=== PATIENT | male | born 1940 | race Caucasian/White ===

== ENCOUNTER 2021-03-26 18:26 | Inpatient (IN) | payer MEDICARE, OTHER, SELFPAY ==
[2021-03-26 19:04] VITALS: BP 109/66; PULSE 60; PULSE 80; RESP 22; TEMP 36.3; O2SAT 99
--- NOTE | 2021-03-26 20:31 | PCM.HP.STD ---
HPI - General General Date of Admission: 03/26/21 HPI Narrative 03/18/2021 TRU JIMENEZ, is a 80 Male who presents to [facility] Emergency Department with neurologic signs/symptoms. Stroke symptoms, CT head negative, Calcium 13.6. UA negative, Chest X-ray small left pleural effusion. IV Fluids given. 03/18/2021 Admit to [facility]. Restless. Urinary Tract Infection 2 weeks prior treated with Keflex. Weakness, confusion x 2 episodes at home. Check PTH, Vitamin D, give normal saline 100cc/hour for hypercalcemia. Hold Lasix. PT/OT for debility. 03/24/2021 Thoracentesis for left pleural effusion. 03/25/2021 Sitting up in bed, discouraged about his blindness. Weak. Calcium normal. Ceftriaxone IV for urinary tract infection. Palliative care consulted. 03/26/2021 Admit to TCU with debility, here for rehabilitation, strengthening, prior to discharge home with . [facility] Medical History (Updated 03/26/21 @ 20:[address] Miguelito Espinosa MD) Debility Diabetes mellitus Edema Encephalopathy Glaucoma Hypercalcemia Hyperlipidemia Hypertension Hypothyroidism Legally blind Pleural effusion, left Seizure disorder Urinary tract infection Vitamin D deficiency Home Medications amoxicillin 500 mg PO BID 03/26/21 [History Last Taken Unknown] aspirin 81 mg PO DAILY 03/26/21 [History Last Taken Unknown] brimonidine 1 drp LEFT EYE BID 03/26/21 [History Last Taken Unknown] cholecalciferol (vitamin D3) [Vitamin D3] 4,000 mcg PO DAILY 03/26/21 [History Last Taken Unknown] dorzolamide-timolol 1 drp EACH EYE BID 03/26/21 [History Last Taken Unknown] furosemide 20 mg PO BID 03/26/21 [History Last Taken Unknown] glipizide 5 mg PO DAILY 03/26/21 [History Last Taken Unknown] levothyroxine 75 mcg PO DAILY 03/26/21 [History Last Taken Unknown] lisinopril-hydrochlorothiazide 1 tab PO DAILY 03/26/21 [History Last Taken Unknown] phenytoin sodium extended 300 mg PO BID 03/26/21 [History Last Taken Unknown] silver sulfadiazine 1 applic TOPICAL DAILY 03/26/21 [History Last Taken Unknown] simvastatin 20 mg PO DAILY 03/26/21 [History Last Taken Unknown] urea 1 applic TOPICAL DAILY 03/26/21 [History Last Taken Unknown] vits A,C,A-bgluct-ntly-zn-vicky [Eye Health Formula] 1 cap PO DAILY 03/26/21 [History Last Taken Unknown] Allergy/AdvReac Type Severity Reaction Status Date / Time No Known Allergies Allergy Verified 03/27/21 00:57 Social History (Updated 03/26/21 @ 20:[address] Miguelito Espinosa MD) household members: spouse Smoking Status: Never smoker alcohol intake: never substance use type: does not use ROS Constitutional Constitutional: Denies chills, fever(s) or weight gain ENT HEENT: Denies headache(s), nasal congestion or nasal discharge Cardiovascular Cardiovascular: Denies chest pain or palpitations Respiratory/Chest Respiratory/Chest: Denies cough, excessive phlegm production or shortness of breath with exertion Gastrointestinal Gastrointestinal: Denies abdominal pain, nausea or vomiting Genitourinary Genitourinary: Denies dysuria Musculoskeletal Musculoskeletal: Denies joint pain or joint swelling Integumentary Integumentary: Denies rash or wounds Neurologic Neurologic: Denies focal weakness, numbness or tingling Psychiatric Psychiatric: Denies anxiety, auditory hallucinations, depression, homicidal ideation or suicidal ideation Physical Exam Const alert and oriented x3 General Appearance: cooperative HEENT normocephalic Eyes PERRL and EOMs intact bilaterally Neck supple, no JVD and no carotid bruits Resp normal respiratory effort, normal air movement and clear to auscultation bilaterally Cardio regular rate and regular rhythm GI normal to inspection, nondistended, normoactive bowel sounds, non-tender and non-distended Extremity normal capillary refill General Extremity: Negative for edema Skin no rashes or lesions noted General Skin Exam: no breakdown Psych affect normal Appearance: appropriate Results Lab / Micro Data Result Diagrams: 03/27/21 07:44 03/27/21 07:44 Assessment & Plan Assessment/Plan (1) Debility: (2) Hypercalcemia: (3) Encephalopathy: (4) Urinary tract infection: (5) Pleural effusion, left: (6) Hyperlipidemia: (7) Seizure disorder: (8) Diabetes mellitus: (9) Hypertension: (10) Hypothyroidism: (11) Edema: (12) Vitamin D deficiency: (13) Glaucoma: (14) Legally blind: PLAN: 80 year old male with below past medical history hospitalized for acute encephalopathy secondary to hypercalcemia, urinary tract infection, admitted to TCU with debility, here for rehabilitation, strengthening, prior to discharge home with . Debility - PT/OT. Pain - Tylenol 1000mg q6h prn pain (1-10). Bowel - Miralax 17gm daily, senna/colace 1 tablet bid, Dulcolax 10mg daily prn. Adult immunization - Administer prevnar 13, pneumovax 23, fluzone, covid19 vaccine as appropriate. DVT prophylaxis - Lovenox 40mg sc daily. Urinary tract infection - Amoxil 500mg bid thru 04/02/2021. CV prophylaxis - Aspirin 81mg daily. Glaucoma - Brimonidine 1gtt os bid, Dorzolamide/Timolol 1gtt ou bid. Vitamin D deficiency - D3 25mcg daily. Edema - Furosemide 20mg bid. Diabetes Mellitus II - Glipiizide 5mg daily. Hypothyroidism - Levothyroxine 75mcg daily. Hypertension - Lisinopril hct 02/02.m5 daily. Seizure disorder - Dilantin 300mg bid. Wound - Silvadene topical daily. Skin irritation - Urea topical daily. Macular degeneration - Healthy Eye 1 tablet daily.
[2021-03-26 20:46] VITALS: BMI 34.4
--- NOTE | 2021-03-27 02:03 | NURSING ---
Patient arrived to unit at approximately 6:45pm 03/26/21. VS obtained, patient oriented to room, call light within reach.
--- NOTE | 2021-03-27 02:06 | NURSING ---
Patient resting in bed, awakens easily, but will fall asleep while saying something. He will ask for urinal but is unable to void. Attends in place for incontinence episodes. Swings legs out of bed and requires adjusting and repositioning. Pressure alarm put in place. Is able to voice wants and needs but is confused at times and does not answer questions appropriately.
[2021-03-27] MEDS: Dorzolamide HCL/Timolol 10 ml Bottle 1 DRP EACH EYE ×2 (05:58→17:20)
[2021-03-27] MEDS: BRIMONIDINE 0.2% 5ML BOTTLE 1 DRP LEFT EYE ×2 (05:59→17:20)
[2021-03-27] MEDS: Enoxaparin 40 MG/0.4 ML Syringe SC (06:00)
[2021-03-27] MEDS: Polyethylene Glycol 3350 17 GM PACKET PO (06:00)
[2021-03-27] MEDS: Levothyroxine 75 MCG Tablet PO (06:03)
[2021-03-27] MEDS: hydroCHLOROthiazide 12.5mg 12.5 MG PO (06:03)
[2021-03-27] MEDS: AMOXICILLIN 500 MG CAPSULE PO ×2 (06:04→17:19)
[2021-03-27] MEDS: Senna/Docusate Sodium 1 Tablet PO ×2 (06:04→17:19)
[2021-03-27] MEDS: Lisinopril 10 MG Tablet PO (06:04)
[2021-03-27] MEDS: Furosemide 20 MG Tablet PO ×2 (06:04→17:19)
[2021-03-27] MEDS: Cholecalciferol (VIT D3) 25 MCG TABLET (1,000 UNITS) PO (06:04)
[2021-03-27 08:19] LABS: Absolute Lymphocyte Count 2.04 X10^3/uL (0.83-4.51); Absolute Neutrophil Count 5.2 X10^3/uL (2.0-7.7); Basophil# 0.07 X10^3/uL; Basophil% 0.8 % (0-1); Eosinophil# 0.13 X10^3/uL; Eosinophils% 1.5 % (0-5); Hematocrit 32.8 % (40-54); Lymphocyte # 2.04 X10^3/ul (0.83-4.51); Lymphocyte % 22.9 % (19-41); Mean Corp Hgb Conc 33.5 g/dL (32-36); Mean Corpuscular Hgb 31.9 pg (27.0-32.0); Mean Corpuscular Volume 95.1 fL (80-94); Mean Platelet Vol. 11.5 fl (6.2-12.0); Monocyte# 1.44 X10^3/uL; Monocyte% 16.1 % (0-10); NRBC Flagged by Analyzer 0 % (0-5); Neutrophil # 5.21 X10^3/uL (2.7-7.7); Neutrophil % 58.4 % (47-70); Platelet Count 169 K/mm3 (150-450); RBC Distribution Width CV 14.3 % (11.6-14.6); RBC Distribution Width SD 48.9 fl (35.1-43.9); Red Blood Count 3.45 M/mm3 (4.6-6.2); White Blood Count 8.9 K/mm3 (4.4-11.0)
[2021-03-27 08:45] LABS: Anion Gap 7 (5-15); BUN 14 mg/dL (7-18); BUN/Creat Ratio 26.3 RATIO (10-20); Chloride 108 mmol/L (98-107); Creatinine, Serum 0.53 mg/dL (0.70-1.30); EST Glomerular Filtration Rate 158 mL/min (>60); Est Glom Filt Rate - Afr Amer 191 mL/min (>60); Estimated Creatinine Clearance 59.82 ml/min; Glucose 98 mg/dL (74-106); Potassium 3.5 mmol/L (3.5-5.1); Sodium Level 144 mmol/L (136-145)
[2021-03-27] MEDS: Aspirin 81 MG TAB.CHEW PO (10:11)
[2021-03-27] MEDS: Phenytoin Na 100 MG Capsule 300 MG PO ×2 (10:11→17:20)
[2021-03-27] MEDS: Multivitamins,Therapeutic Tablet 1 TABLET PO (10:11)
[2021-03-27] MEDS: glipiZIDE 5 MG Tablet PO (10:11)
--- NOTE | 2021-03-27 12:14 | NURSING ---
spoke with via phone, she wants pt to be Full Code. will be in shortly to bring in living will and covid vaccine booster card. states pt had original covid x2 vaccines at NH and they lost card but have record of them there.
[2021-03-27 13:21] VITALS: O2SAT 98
[2021-03-27] MEDS: Tuberculin,Purif.prot.deriv. 50 TU/ML Vial 0.1 ML ID (13:31)
[2021-03-27 15:26] VITALS: BP 134/72; PULSE 56; RESP 18; TEMP 36.1; O2SAT 96
[2021-03-27 16:30] LABS: Bedside Glucose 59 mg/dL (70-110)
[2021-03-27 17:10] LABS: Bedside Glucose 80 mg/dL (70-110)
--- NOTE | 2021-03-27 18:10 | NURSING ---
ATTEMPTED TO GIVE PT MEDS IN APPLESAUCE AND PT COULD NOT SWALLOW, STARTED GAGGING. REMOVED MEDS FROM TONGUE AND OPENED CAPSULES IN PLACE IN [place], PT ABLE TO SWALLOW. PT REFUSED TO EAT SUPPER, TRIED GIVING BITE OF MASHED POTATOES AND TURKEY AND PT BEGAN GAGGING AGAIN. REMOVED FOOD FROM ORAL CAVITY W/OUT DIFFICULTY, PT ABLE TO BRING OUT ON TONGUE. PT STATES HE DOES NOT LIKE MASHED POTATOES. PT RESTING IN BED HOB ELEVATED, CALL LIGHT IN REACH. PT CONFUSED, TRIED TO GET PT TO LET ME ORDER HIS BRKFST ACCORDING TO WHAT HE EATS AT HOME. HE STATED THAT ITS IN THE CUPBOARD, T[place]ER [place]N FLAKES. ATTEMPTED TO REORIENT AND PT GOT SLIGHTLY AGITATED. ALARMS IN PLACE.
[2021-03-27] MEDS: Atorvastatin Calcium 10 MG Tablet PO (20:55)
[2021-03-28 00:35] VITALS: PULSE 60; RESP 18; O2SAT 98
[2021-03-28] MEDS: Dorzolamide HCL/Timolol 10 ml Bottle 1 DRP EACH EYE ×2 (04:37→17:52)
[2021-03-28] MEDS: hydroCHLOROthiazide 12.5mg 12.5 MG PO (04:39)
[2021-03-28] MEDS: Furosemide 20 MG Tablet PO ×2 (04:39→17:44)
[2021-03-28] MEDS: Senna/Docusate Sodium 1 Tablet PO ×2 (04:39→17:44)
[2021-03-28] MEDS: Polyethylene Glycol 3350 17 GM PACKET PO (04:39)
[2021-03-28] MEDS: Enoxaparin 40 MG/0.4 ML Syringe SC (04:39)
[2021-03-28] MEDS: Lisinopril 10 MG Tablet PO (04:40)
[2021-03-28] MEDS: AMOXICILLIN 500 MG CAPSULE PO ×2 (04:40→17:44)
[2021-03-28] MEDS: Cholecalciferol (VIT D3) 25 MCG TABLET (1,000 UNITS) PO (04:40)
[2021-03-28] MEDS: Levothyroxine 75 MCG Tablet PO (04:41)
[2021-03-28 04:45] VITALS: BP 119/55; PULSE 67
[2021-03-28] MEDS: BRIMONIDINE 0.2% 5ML BOTTLE 1 DRP LEFT EYE ×2 (04:50→17:51)
[2021-03-28 06:46] LABS: Bedside Glucose 102 mg/dL (70-110)
[2021-03-28 07:12] VITALS: O2SAT 93
[2021-03-28] MEDS: glipiZIDE 5 MG Tablet PO (08:15)
[2021-03-28] MEDS: Aspirin 81 MG TAB.CHEW PO (08:15)
[2021-03-28] MEDS: Multivitamins,Therapeutic Tablet 1 TABLET PO (08:15)
[2021-03-28] MEDS: Phenytoin Na 100 MG Capsule 300 MG PO ×2 (08:16→17:44)
[2021-03-28 10:38] VITALS: PULSE 53; RESP 18; O2SAT 99
--- NOTE | 2021-03-28 11:16 | NURSING ---
arrived, states pt does not wear his dentures, hasn't since they were made, also has hearing aids and refuses to wear them. expressed concern that pt refusing meals and gags when trying to swallow solid food. reports that pt has been doing that for awhile now and that [facility] did a CT showing lymph nodes swollen in abdomen. also states that pt sister from stomach cancer couple years ago. will update dr mclaughlin. also stated that pt does not bath in shower because he can't get into their very old tub so he just washes self at sink. stated he very stubborn too
[2021-03-28 15:48] VITALS: BP 112/58; PULSE 57; RESP 20; TEMP 36.4; O2SAT 94
--- NOTE | 2021-03-28 18:46 | NURSING ---
lulu have wound nurse assess BLEs for treatment options. updated and agreeable.
[2021-03-28] MEDS: Menthol/Lanolin/Calamine/Znox 113 GM Tube 1 APPLIC TOPICAL (21:21)
[2021-03-29] MEDS: Dorzolamide HCL/Timolol 10 ml Bottle 1 DRP EACH EYE ×2 (04:42→17:44)
[2021-03-29] MEDS: Bisacodyl 5 MG Tablet 10 MG PO (04:44)
[2021-03-29] MEDS: Levothyroxine 75 MCG Tablet PO (04:46)
[2021-03-29] MEDS: Furosemide 20 MG Tablet PO ×2 (04:46→17:43)
[2021-03-29] MEDS: Enoxaparin 40 MG/0.4 ML Syringe SC (04:46)
[2021-03-29] MEDS: Senna/Docusate Sodium 1 Tablet PO ×2 (04:46→17:43)
[2021-03-29] MEDS: Cholecalciferol (VIT D3) 25 MCG TABLET (1,000 UNITS) PO (04:46)
[2021-03-29] MEDS: Polyethylene Glycol 3350 17 GM PACKET PO (04:46)
[2021-03-29] MEDS: hydroCHLOROthiazide 12.5mg 12.5 MG PO (04:46)
[2021-03-29] MEDS: AMOXICILLIN 500 MG CAPSULE PO ×2 (04:47→17:43)
[2021-03-29] MEDS: Menthol/Lanolin/Calamine/Znox 113 GM Tube 1 APPLIC TOPICAL ×2 (04:50→21:23)
[2021-03-29] MEDS: BRIMONIDINE 0.2% 5ML BOTTLE 1 DRP LEFT EYE ×2 (04:56→17:51)
[2021-03-29] MEDS: Lisinopril 10 MG Tablet PO (04:57)
[2021-03-29 05:05] VITALS: BP 111/67; PULSE 73
[2021-03-29 06:41] LABS: Bedside Glucose 116 mg/dL (70-110)
[2021-03-29] MEDS: Aspirin 81 MG TAB.CHEW PO (09:21)
[2021-03-29] MEDS: glipiZIDE 5 MG Tablet PO (09:21)
[2021-03-29] MEDS: Multivitamins,Therapeutic Tablet 1 TABLET PO (09:21)
[2021-03-29] MEDS: Phenytoin Na 100 MG Capsule 300 MG PO ×2 (09:21→17:43)
--- NOTE | 2021-03-29 12:58 | WOUNDNOTE ---
Was consulted on patient for small cracks to lower legs. there are no cracked areas noted just some chronic edema with creases in the skin from the edema. there are few scattered scabbed areas to the right knee and lower leg. no open wounds noted. some areas of patchy dry skin as well. can apply emollient as ordered. no need for wound care at this time. see skin photos.
--- NOTE | 2021-03-29 13:48 | WOUNDNOTE ---
skin photo: right lower leg
--- NOTE | 2021-03-29 13:48 | WOUNDNOTE ---
skin photo: left lower leg
--- NOTE | 2021-03-29 15:16 | PHA.CONS_ITS ---
Progress Note - Pharmacy Subjective: TCU Admission Objective: Allergies No Known Allergies Allergy (Verified 03/27/21 00:57) Current Medications Generic Name Dose Route Start Last Admin Trade Name Freq PRN Reason Stop Dose Admin Acetaminophen 1,000 mg 03/26/21 20:47 Acetaminophen 500 Mg Tablet PO Q6H PRN PRN Pain Score 1-10 Amoxicillin 500 mg 03/27/21 06:00 03/29/21 04:47 Amoxicillin 500 Mg Capsule PO 04/02/21 06:01 500 mg BID TALON Administration Aspirin 81 mg 03/27/21 08:00 03/29/21 09:21 Aspirin 81 Mg Tab.Chew PO 81 mg DAILYCM TALON Administration Atorvastatin Calcium 10 mg 03/27/21 22:00 03/28/21 21:24 Atorvastatin Calcium 10 Mg Tablet PO Not Given QHS TALON Bisacodyl 10 mg 03/26/21 20:47 03/29/21 04:44 Bisacodyl 5 Mg Tablet PO 10 mg DAILY PRN PRN Administration Constipation Brimonidine Tartrate 1 drp 03/26/21 19:45 03/29/21 04:56 Brimonidine 0.2% 5ml Bottle LEFT EYE 1 drp BID TALON Administration Calamine/Phenol 1 applic 03/28/21 22:00 03/29/21 04:50 Menthol/Lanolin/Calamine/Znox 113 Gm Tube TOPICAL 1 applic 0600,2200 TALON Administration Protocol Cholecalciferol 25 mcg 03/27/21 06:00 03/29/21 04:46 Cholecalciferol (Vit D3) 25 Mcg Tablet (1,000 Units) PO 25 mcg DAILY TALON Administration Dorzolamide/Timolol 1 drp 03/26/21 19:45 03/29/21 04:42 Dorzolamide Hcl/Timolol 10 Ml Bottle EACH EYE 1 drp BID TALON Administration Emollient Ointment 1 applic 03/29/21 13:26 Emollient Combination No.72 500 Ml Lotion TOPICAL 4X/DAY PRN PRN Dry Skin Protocol Enoxaparin Sodium 40 mg 03/27/21 06:00 03/29/21 04:46 Enoxaparin 40 Mg/0.4 Ml Syringe SC 40 mg DAILY@0600 TALON Administration Furosemide 20 mg 03/27/21 06:00 03/29/21 04:46 Furosemide 20 Mg Tablet PO 20 mg BID TALON Administration Glipizide 5 mg 03/27/21 08:00 03/29/21 09:21 Glipizide 5 Mg Tablet PO 5 mg DAILYCM [facility] Administration Hydrochlorothiazide 12.5 mg 03/27/21 06:00 03/29/21 04:46 Hydrochlorothiazide 12.5mg PO 12.5 mg DAILY TALON Administration Levothyroxine Sodium 75 mcg 03/27/21 06:00 03/29/21 04:46 Levothyroxine 75 Mcg Tablet PO 75 mcg DAILY TALON Administration Lisinopril 10 mg 03/27/21 06:00 03/29/21 04:57 Lisinopril 10 Mg Tablet PO 10 mg DAILY TALON Administration Multivitamins 1 tablet 03/27/21 08:00 03/29/21 09:21 Multivitamins,Therapeutic Tablet PO 1 tablet BREAKFAST TALON Administration Nutritional Formula (Lactose Free) 120 ml 03/29/21 17:45 Glucerna Shake 120 Ml Liquid PO TIDCM [facility] Phenytoin Sodium 300 mg 03/27/21 08:00 03/29/21 09:21 Phenytoin Na 100 Mg Capsule PO 300 mg BID TALON Administration Polyethylene Glycol 17 gm 03/27/21 06:00 03/29/21 04:46 Polyethylene Glycol 3350 17 Gm Packet PO 17 gm DAILY TALON Administration Senna/Docusate Sodium 1 tablet 03/27/21 06:00 03/29/21 04:46 Senna/Docusate Sodium 1 Tablet PO 1 tablet BID TALON Administration Tuberculin PPD 0.1 ml 04/03/21 10:00 Tuberculin,Purif.Prot.Deriv. 50 Tu/Ml Vial ID 04/03/21 10:01 X1 ONE Problem List (Last Updated 03/26/21 @ 20:[address] Miguelito Espinosa MD) Legally blind (Acute) Glaucoma (Acute) Vitamin D deficiency (Acute) Edema (Acute) Hypothyroidism (Acute) Hypertension (Chronic) Diabetes mellitus (Acute) Seizure disorder (Acute) Hyperlipidemia (Acute) Pleural effusion, left (Acute) Urinary tract infection (Acute) Encephalopathy (Acute) Hypercalcemia (Acute) Debility (Acute) Vital Signs Temp Pulse Resp BP Pulse Ox 97.5 F L 73 20 H 111/67 94 03/28/21 15:48 03/29/21 05:05 03/28/21 15:48 03/29/21 05:05 12/05/21 15:48 Oxygen Flow Rate (L/min) 3 Oxygen Delivery Method Nasal Cannula Weight: 109.3 kg Body Mass Index (BMI) 34.4 Sodium 144 mmol/L (136-145) 03/27/21 07:44 Potassium 3.5 mmol/L (3.5-5.1) 03/27/21 07:44 Chloride 108 mmol/L (98-107) H 03/27/21 07:44 Carbon Dioxide 29.0 mmol/L (21.0-32.0) 03/27/21 07:44 Anion Gap 7 (5-15) 03/27/21 07:44 BUN 14 mg/dL (7-18) 03/27/21 07:44 Creatinine 0.53 mg/dL (0.70-1.30) L 03/27/21 07:44 Est GFR (MDRD) Af Amer 191 mL/min (>60) 03/27/21 07:44 Est GFR (MDRD) Non-Af 158 mL/min (>60) 03/27/21 07:44 BUN/Creatinine Ratio 26.3 RATIO (10-20) H 03/27/21 07:44 Glucose 98 mg/dL (74-106) 03/27/21 07:44 Assessment/Plan: 1. Pain: acetaminophen 1000mg PO Q6H PRN pain 1-01/31. Please continue to monitor for increased pain and PRN usage. 2. DVT prophylaxis: enoxaparin 40mg SC daily. Please continue to monitor for S/S of bleeding, platelets (last 169,000), hemoglobin (last 11g/dL) and renal function. 3. UTI: amoxicillin 500mg PO BID thru 04/02/21. Please continue to monitor for S/S of infection and renal function. 4. DV prophylaxis: aspirin 81mg PO DAILYCM. Please continue to monitor for S/S of bleeding and hemoglobin. 5. Edema: furosemide 20mg PO BID. Please continue to monitor for edema, renal function, sodium (last 144mmol/L) and potassium (last 3.5mmol/L). 6. Hypertension: lisinopril 10mg PO daily and hydrochlorothiazide 12.5mg PO daily. Please continue to monitor BP (last 111/67), potassium, sodium and renal function. *7. Diabetes mellitus II: glipizde 5mg PO DAILYCM. Patient does not have a hemoglobin A1c in chart. Please consider ordering a hemoglobin A1c if clinically appropriate. Thanks. Please continue to monitor for S/S of hypoglycemia and glucose (last 98mg/dL). *8. Hypothyroidism: levothyroxine 75mcg PO daily. Patient does not have a TSH in chart. Please consider ordering a TSH if clinically appropriate. Thanks. Please continue to monitor for S/S of hypo/hyperthyroidism. *9. Seizure disorder: phenytoin 300mg PO BIDCM. Please consider ordering a phenytoin level if clinically appropriate. Patient does not have one in chart. Thanks. Please continue to monitor for nausea, dizziness and drowsiness. 10. Glaucoma: brimonidine 0.2% 1gtt OS BID and dorzolamide/timolol 1gtt OU BID. Please continue to monitor for S/S of glaucoma and dry, itchy eyes. 11. Vitamin D deficiency/macular degeneration: cholecalciferol 25mcg PO daily and multivitamin 1T PO breakfast. Please consider ordering a vitamin D level if clinically appropriate. Patient does not have one in the chart. Thanks. Please continue to monitor. *12. Hyperlipidemia (per PMH): atorvastatin 10mg PO QHS. Please consider ordering a lipid panel if clinically appropriate. Patient does not have a lipid panel in chart. Please continue to monitor for muscle pain. Psychotropic Medications: None Unnecessary Medications: None Bowel Regimen: Miralax 17gm PO daily, senna/docusate 1T PO BID and bisacodyl 10mg PO daily PRN constipation. Please continue to monitor for constipation and PRN usage. Date of Note:: 03/29/21
--- NOTE | 2021-03-29 15:32 | NURSING ---
Resident and spouse, Kassy, notified of staff member testing positive for COVID.
[2021-03-29 15:39] VITALS: BP 108/61; PULSE 58; RESP 20; TEMP 36.6; O2SAT 98
[2021-03-29 15:58] VITALS: BP 108/68; PULSE 61; RESP 20; TEMP 36.8; O2SAT 96
--- NOTE | 2021-03-29 15:59 | NURSING ---
Addendum entered by Annette Hughes 03/29/21 16:45: was called to update on event but no answer, message was left to return phone call. Original Note: At approx 1550 this nurse heard pt's alarm ringing. Upon entering residents room this nurse observed resident sitting on floor leaning against foot rest of his recliner chair with arm by his side and feet straight out in front of him. Pt was observed scooching his bottom across the floor and eventually laying in supine position. Pt denies hitting head and head resting against foot rest and did not hit floor per observation and pt report, Pt was immediately assessed by this nurse, redness to mid back but skin intact, ROM WNL, no internal/external of adolfo hips, pt denies pain/discomfort. Neuro checks WNL, VS WNL, PERRLA baseline. When asked what pt was doing he stated I slid out of my chair. Floor noted to be free from clutter, when pt slid out of chair he knocked a cup of water on the floor but floor was dried before transferring, call light was within reach but not ringing, chair exit alarm ringing and functional. Resident assisted into bed x4 assist with a gait belt, Dr. Espinosa and Rosalia updated, N.O. dycem to chair while occupied. Pt and POA updated on new orders and verbalized understanding, prior to fall pt was last seen at approx 1500 and was toileted by staff.
--- NOTE | 2021-03-29 16:11 | CASEMGMT ---
Social Work Met with patient for initial assessment. Discussed code status. Pt wishes to be DNR-CCA, no intubation. Nursing notified. MOLST form completed, communication to , placed in chart. Explained Medicare benefit. Encouraged to contact secondary insurance to ensure copay coverage. The goal is for pt to return home with . assisted at [facility]. Pt is legally blind. SW to continue to follow for discharge planning. Flavia Torres ,BLAST FURNACE CHECKER AGENT TELEGRAPHER
[2021-03-29] MEDS: Glucerna Shake 120 ML LIQUID PO (17:44)
[2021-03-29 20:30] VITALS: PULSE 61; RESP 16; O2SAT 98
[2021-03-29 20:38] VITALS: BP 98/58; PULSE 61; RESP 16; O2SAT 97
[2021-03-29] MEDS: Atorvastatin Calcium 10 MG Tablet PO (21:20)
[2021-03-29 21:26] LABS: Bedside Glucose 82 mg/dL (70-110)
[2021-03-30] MEDS: Enoxaparin 40 MG/0.4 ML Syringe SC (05:25)
[2021-03-30] MEDS: Lisinopril 10 MG Tablet PO (05:25)
[2021-03-30] MEDS: Furosemide 20 MG Tablet PO (05:25)
[2021-03-30] MEDS: Senna/Docusate Sodium 1 Tablet PO (05:25)
[2021-03-30] MEDS: Cholecalciferol (VIT D3) 25 MCG TABLET (1,000 UNITS) PO (05:26)
[2021-03-30] MEDS: AMOXICILLIN 500 MG CAPSULE PO (05:26)
[2021-03-30] MEDS: Levothyroxine 75 MCG Tablet PO (05:26)
[2021-03-30] MEDS: hydroCHLOROthiazide 12.5mg 12.5 MG PO (05:26)
[2021-03-30] MEDS: BRIMONIDINE 0.2% 5ML BOTTLE 1 DRP LEFT EYE (05:27)
[2021-03-30] MEDS: Menthol/Lanolin/Calamine/Znox 113 GM Tube 1 APPLIC TOPICAL ×2 (05:27→22:21)
[2021-03-30] MEDS: Dorzolamide HCL/Timolol 10 ml Bottle 1 DRP EACH EYE (05:27)
[2021-03-30] MEDS: Polyethylene Glycol 3350 17 GM PACKET PO (05:28)
[2021-03-30 06:35] LABS: Bedside Glucose 115 mg/dL (70-110)
[2021-03-30 07:42] VITALS: O2SAT 95
--- NOTE | 2021-03-30 08:21 | NURSING ---
pt refusing to eat and put oxygen on. did some one on one with pt and educated and pt still refused. will try again later. oxygen at this time 92% ra. reported to rn
--- NOTE | 2021-03-30 11:38 | NURSING ---
Refusing to take AM meds. When asked if he was willing to take AM meds at this time he replied not really!. Up in chair with oxygen on.
[2021-03-30] MEDS: Glucerna Shake 120 ML LIQUID PO (13:06)
[2021-03-30 14:07] VITALS: O2SAT 96
[2021-03-30 14:38] VITALS: BP 96/56; PULSE 57; RESP 18; TEMP 36.9; O2SAT 94
--- NOTE | 2021-03-30 16:21 | NURSING ---
Addendum entered by Yamini Bonilla 03/30/21 19:28: calls back and she would like resident to be seen by oncologist in [place]. Original Note: Order noted from [facility] to F/U with oncologist, Dr Jean from [place] in regards to abnormal CT scan of abdomen/pelvis that was done during his stay at [facility]. Order entered here to see [place] oncologist group. Message left for to see if she had a preference on who resident wanted to see. Awaiting call back.
--- NOTE | 2021-03-30 19:38 | NURSING ---
Addendum entered by Evangelina Cruz 03/30/21 22:37: Patient has been restless on a off. Brief slightly wet, changed him into clean brief, repositioned for comfort. Offered snack or fluids, he took a few bites of jello and had a few sips of bindu dave. He did take PM scheduled med in applesauce. Original Note: Offered food/drink, he refused, asked if patient would take seizure medication this evening, he yelled no. TABULATING SUPERVISOR asked to swab mouth or let him do it, patient refused.
[2021-03-30] MEDS: Atorvastatin Calcium 10 MG Tablet PO (22:13)
[2021-03-30] MEDS: ALPRAZolam 0.25 MG Tablet 0.125 MG PO (22:30)
[2021-03-31] MEDS: BRIMONIDINE 0.2% 5ML BOTTLE 1 DRP LEFT EYE ×2 (06:06→17:15)
[2021-03-31] MEDS: Enoxaparin 40 MG/0.4 ML Syringe SC (06:07)
[2021-03-31] MEDS: Polyethylene Glycol 3350 17 GM PACKET PO (06:08)
[2021-03-31] MEDS: Cholecalciferol (VIT D3) 25 MCG TABLET (1,000 UNITS) PO (06:09)
[2021-03-31] MEDS: Furosemide 20 MG Tablet PO (06:09)
[2021-03-31] MEDS: Levothyroxine 75 MCG Tablet PO (06:09)
[2021-03-31] MEDS: Lisinopril 10 MG Tablet PO (06:09)
[2021-03-31] MEDS: Senna/Docusate Sodium 1 Tablet PO (06:09)
[2021-03-31] MEDS: Menthol/Lanolin/Calamine/Znox 113 GM Tube 1 APPLIC TOPICAL ×2 (06:10→20:02)
[2021-03-31] MEDS: AMOXICILLIN 500 MG CAPSULE PO ×2 (06:10→17:16)
[2021-03-31] MEDS: hydroCHLOROthiazide 12.5mg 12.5 MG PO (06:10)
[2021-03-31] MEDS: Dorzolamide HCL/Timolol 10 ml Bottle 1 DRP EACH EYE ×2 (06:14→17:15)
[2021-03-31 06:26] LABS: Bedside Glucose 83 mg/dL (70-110)
[2021-03-31] MEDS: glipiZIDE 5 MG Tablet PO (07:46)
[2021-03-31] MEDS: Phenytoin Na 100 MG Capsule 300 MG PO ×2 (07:46→17:15)
[2021-03-31] MEDS: Multivitamins,Therapeutic Tablet 1 TABLET PO (07:46)
[2021-03-31] MEDS: Aspirin 81 MG TAB.CHEW PO (07:47)
[2021-03-31] MEDS: Glucerna Shake 120 ML LIQUID PO ×2 (07:53→17:15)
--- NOTE | 2021-03-31 09:07 | CASEMGMT ---
Social Work IDT met with patient and via conference call for care plan meeting. Discussed patient's progress in therapy PT/OT/ST and nursing. Explained Medicare benefit. Pt is not eating and refusing medications. Dr. Espinosa spoke with and recommended home with hospice. and pt agreeable. Pt is total assist with all ADLs and has 4 steps to enter. Pt is new on O2. SW to facilitate discharge and referral to [facility]. Flavia Torres, DIRECTOR HOUSEKEEPING LEGAL INTERN
--- NOTE | 2021-03-31 09:38 | CASEMGMT ---
Addendum entered by Flavia Torres 03/31/21 15:54: Spoke with [facility]. They will contact to explain services and coordinate delivering equipment to home this evening. [facility] can admit pt 04/01. is agreeable. requested this worker update son. Spoke with son and explained DC plan and pt's condition. Inquired if son could help at home outside work hours - son agreed. Updated IDT. Scheduled cot transport for 04/01 at 10 am. Plan: DC home with 04/01, [facility] Addendum entered by Flavia Torres 03/31/21 14:51: [facility] still has not processed referral when this worker contacted the office. Withdrew referral. pt is declining and goal is for pt to DC home this date. Contacted several other hospice agencies - most could not service pt's area. However, [facility] has accepted. present in room. Updated pt and . is familiar with [facility] and agreeable to use. Awaiting [facility] response of DC date once they speak with . SW to continue to follow. RAMON Robison MICROMATIC HONE OPERATOR Addendum entered by Barb Mederos 03/31/21 12:16: SW called , message left inquiring if she has been contacted yet by hospice. SW called [facility] again, spoke [place]/Emma. The referral was received but has not been processed. She states they may not be able to set up an appointment until tomorrow. SW explained we need to get this pt seen as soon as possible to get him home. SW gave her SW [facility]'s number to follow up. CARLOS Davis Addendum entered by Barb Mederos 03/31/21 10:46: SW called [facility], spoke [place]/the [place] office, they do not have the referral. SW was able to get through to the [place] Office, was informed that the referral was also not received there, even though SW faxed it to their office and confirmation received that it went through. SW refaxed the referral to [facility]. CARLOS Davis Original Note: Social Work SW called [facility], informed them of referral. SW asked that they call to set up a meeting time, let SW know when they are meeting. SW faxed referral. SW will continue to follow. CARLOS Davis
[2021-03-31 11:36] VITALS: BP 134/71; PULSE 64; RESP 20; TEMP 36.6; O2SAT 98
--- NOTE | 2021-03-31 12:43 | NURSING ---
CM/SW notified in room and wants to meet with them about taking pt home
[2021-03-31 15:31] VITALS: BP 107/69; PULSE 71; RESP 22; TEMP 36.1; O2SAT 99
--- NOTE | 2021-03-31 15:56 | CHAPLAIN ---
Type of Pastoral Visit _x__ Initial Visit ___ Follow-up Visit ___ On-call Visit ___ General Patient Visit ___ Spiritual Assessment ___ Family Conference ___ Bereavement ___ Rapid Response ___ Code Blue ___ Other (describe below) Pastoral Care Referral From ___ Patient ___ Family ___ Nurse ___ Physician ___ Trim Stencil Maker ___ Shutdown Coordinator _x__ Other (describe below) Sacrament/Intervention _x__ Active listening ___ Anointing ___ Confucianist ___ Bereavement ___ Communion _x__ Bri exploration ___ _x__ Life review _x__ Prayer ___ Reconciliation ___ Sacrament of Sick _x__ Supportive presence ___ Wedding ___ Other (describe below) Pastoral Comments this financial systems director was notified by staff that patient is going hospice and would benefit from a visit; pt was alone in room and receptive to visit and spiritual care support; pt acknowledges that DR gave him very bad news and he is having difficulty with that; pt also states that he believes in God and His care/help for him; spouse came into room during the visit and gave more information and perspective of goal for patient who is in decline; pt then began to take momentary naps; offer of prayer received and pt was receptive and expressed thankfulness
--- NOTE | 2021-03-31 19:14 | DS.PCM_ITS ---
Providers Date of Admission: 03/26/21 Primary Care Physician: No Primary Care Phys Reason For Visit: stroke like symptoms Diagnosis Discharge Diagnosis (1) Debility: Status: Acute Code(s): R53.81 - Other malaise (2) Hypercalcemia: Status: Acute Code(s): E83.52 - Hypercalcemia (3) Encephalopathy: Status: Acute Code(s): G93.40 - Encephalopathy, unspecified (4) Urinary tract infection: Status: Acute Code(s): N39.0 - Urinary tract infection, site not specified (5) Pleural effusion, left: Status: Acute Code(s): J90 - Pleural effusion, not elsewhere classified (6) Hyperlipidemia: Status: Acute Code(s): E78.5 - Hyperlipidemia, unspecified (7) Seizure disorder: Status: Acute Code(s): G40.909 - Epilepsy, unspecified, not intractable, without status epilepticus (8) Diabetes mellitus: Status: Acute Code(s): E11.9 - Type 2 diabetes mellitus without complications (9) Hypertension: Status: Chronic Code(s): I10 - Essential (primary) hypertension (10) Hypothyroidism: Status: Acute Code(s): E03.9 - Hypothyroidism, unspecified (11) Edema: Status: Acute Code(s): R60.9 - Edema, unspecified (12) Vitamin D deficiency: Status: Acute Code(s): E55.9 - Vitamin D deficiency, unspecified (13) Glaucoma: Status: Acute Code(s): H40.9 - Unspecified glaucoma (14) Legally blind: Status: Acute Code(s): H54.8 - Legal blindness, as defined in [place] Hospital Course Operations None Procedures None Summary of Care Provided Minutes Spent on Discharge: 35 Hospital Course: 80 year old male with below past medical history hospitalized for acute encephalopathy secondary to hypercalcemia, urinary tract infection, admitted to TCU with debility, here for rehabilitation, strengthening, prior to discharge home with . 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 Resident dying. Discharge home with 04/01/2021, [facility]. Physical Exam Const alert and oriented x3 General Appearance: cooperative HEENT normocephalic Eyes PERRL and EOMs intact bilaterally Neck supple, no JVD and no carotid bruits Resp normal respiratory effort, normal air movement and clear to auscultation bilaterally Cardio regular rate and regular rhythm GI normal to inspection, nondistended, normoactive bowel sounds, non-tender and non-distended Extremity normal capillary refill General Extremity: Negative for edema Skin no rashes or lesions noted General Skin Exam: no breakdown Psych affect normal Appearance: appropriate Medical Records Data Medical Nutrition Assessment Dietitian: Malnutrition Criteria Met Start: 03/31/21 12:45 Freq: Status: Active Protocol: Document 03/31/21 12:45 SLA (Rec: 03/31/21 12:45 [facility] [id number]) Nutrition Malnutrition Evidence of Malnutrition Exists Yes Malnutrition (severe): Acute Illness/Injury Evidenced By Suboptimal Energy Intake ( Severe),Weight Loss (Severe) Intake Problem Inadequate Oral Intake Status Inactive Problem Clinical Problem Acute Disease or Injury Related Malnutrition Etiology related to metastatic cancer, dysphagia and inability to consume adequate nutrition to meet estimated nutritional needs Signs/Symptoms as evidenced by po intake <50% x > 5 days and 2.1% wt loss since adm. Status Active Problem Recommendation Dietitian Recommendations/Changes Will continue liberal regular diet - consistency per CONFIGURATION MANAGEMENT ANALYST - d /t res poor po intake at meals Will continue 4 oz glucerna shake w/ medpass tid for increased nutrition if consumed Rec alternate nutrition support if in accordance w/ res/family wishes to help prevent further decline in res nutritional status. Weight / BMI Weight Weight: 107.1 kg Body Mass Index (BMI) 34.4 ABG / Lab / Microbiology Data Result Diagrams: 03/27/21 07:44 03/27/21 07:44 Laboratory: Laboratory Results - last 24 hr 03/30/21 : COVID-19 ([id number]) Not Detected 03/31/21 06:13: POC Glucose 83 D/C Instructions Discharge Diet: No restrictions Discharge Activity: Return to Normal Activity, May Shower and Use Walker Weight Bearing Status: Weight bearing as tolerated Additional Instructions: Discharge home with 04/01/2021, [facility]. Meaningful Use Info Meaningful Use Diagnoses (Choose all that apply): None applicable Discharge Plan Admission Admit Date/Time: 03/26/21 18:26 Primary Reason for Your Visit: Debility. Attending Provider: Miguelito Espinosa Chi Primary Care Provider: Care Physician,No Primary Instructions Additional Instructions / Restrictions: Discharge home with 04/01/2021, [facility]. Discharge Orders/Prescriptions Prescriptions: Discontinued amoxicillin 500 mg Capsule 500 mg PO BID RF: 0 phenytoin sodium extended 300 mg Capsule 300 mg PO BID RF: 0 levothyroxine 75 mcg Tablet 75 mcg PO DAILY RF: 0 brimonidine 0.2 % Drops 1 drp LEFT EYE BID RF: 0 dorzolamide-timolol 22.3-6.8 mg/mL Drops 1 drp EACH EYE BID RF: 0 furosemide 20 mg Tablet 20 mg PO BID RF: 0 lisinopril-hydrochlorothiazide 10-12.5 mg Tablet 1 tab PO DAILY RF: 0 glipizide 5 mg Tablet 5 mg PO DAILY RF: 0 Eye Health Formula 9,650 unit-195 mg-95 unit Capsule 1 cap PO DAILY RF: 0 aspirin 81 mg Capsule 81 mg PO DAILY RF: 0 silver sulfadiazine 1 % Cream 1 applic TOPICAL DAILY RF: 0 urea 20 % Cream 1 applic TOPICAL DAILY RF: 0 simvastatin 20 mg Tablet 20 mg PO DAILY RF: 0 cholecalciferol (vitamin D3) [Vitamin D3] 50 mcg (2,000 unit) Tablet 4,000 mcg PO DAILY RF: 0 Referrals / Follow Up: Care Physician,No Primary [Primary Care Provider] - Disposition Disposition (needs filled in before D/C Order can be placed): Hospice in Home
[2021-03-31 19:56] VITALS: PULSE 67; RESP 18; O2SAT 93
[2021-03-31] MEDS: Atorvastatin Calcium 10 MG Tablet PO (20:03)
[2021-04-01] MEDS: BRIMONIDINE 0.2% 5ML BOTTLE 1 DRP LEFT EYE (05:28)
[2021-04-01] MEDS: hydroCHLOROthiazide 12.5mg 12.5 MG PO (05:28)
[2021-04-01] MEDS: AMOXICILLIN 500 MG CAPSULE PO (05:28)
[2021-04-01] MEDS: Levothyroxine 75 MCG Tablet PO (05:28)
[2021-04-01] MEDS: Menthol/Lanolin/Calamine/Znox 113 GM Tube 1 APPLIC TOPICAL (05:29)
[2021-04-01] MEDS: Dorzolamide HCL/Timolol 10 ml Bottle 1 DRP EACH EYE (05:29)
[2021-04-01] MEDS: Enoxaparin 40 MG/0.4 ML Syringe SC (05:30)
[2021-04-01 06:13] VITALS: PULSE 70; RESP 14; O2SAT 94
[2021-04-01 06:26] LABS: Bedside Glucose 64 mg/dL (70-110)
[2021-04-01] MEDS: Aspirin 81 MG TAB.CHEW PO (09:16)
[2021-04-01] MEDS: Multivitamins,Therapeutic Tablet 1 TABLET PO (09:16)
[2021-04-01] MEDS: glipiZIDE 5 MG Tablet PO (09:16)
[2021-04-01] MEDS: Phenytoin Na 100 MG Capsule 300 MG PO (09:17)
[2021-04-01 10:00] VITALS: BP 114/62; PULSE 83; RESP 16; TEMP 36.2; O2SAT 91
--- NOTE | 2021-04-06 08:45 | MDS.RN ---
Information for the mds was obtained from review of the clinical record, interview of resident, staff, and direct observation of resident's care.
== END 2021-04-01 10:15 | disposition hospice, home (50) | DRG 690 ==
PROVIDERS: Admitting Provider Family Medicine Geriatric Medicine; Visit Provider Family Medicine Geriatric Medicine
DX: N39.0 Urinary tract infection, site not specified (principal); G93.40 Encephalopathy, unspecified; C78.6 Secondary malignant neoplasm of retroperitoneum and peritoneum; H40.9 Unspecified glaucoma; H35.30 Unspecified macular degeneration; G40.909 Epilepsy, unspecified, not intractable, without status epilepticus; E55.9 Vitamin D deficiency, unspecified; C80.1 Malignant (primary) neoplasm, unspecified; E03.9 Hypothyroidism, unspecified; I10 Essential (primary) hypertension; H54.8 Legal blindness, as defined in USA; F41.9 Anxiety disorder, unspecified; E78.5 Hyperlipidemia, unspecified; E11.9 Type 2 diabetes mellitus without complications; Z79.899 Other long term (current) drug therapy; Z79.82 Long term (current) use of aspirin; Z79.84 Long term (current) use of oral hypoglycemic drugs
CPT/HCPCS: 80048; 82962; 85025; 87635; 92507; 92526; 92610; 97110; 97112; 97116; 97162; 97165; 97530; 97535; 97802; U0005; U0003